=== PATIENT | female | born 1990 | race Caucasian/White ===

== ENCOUNTER 2019-09-24 12:11 | Emergency (ER) | payer BC ==
[~2019-09-24] VITALS: Ht 154.9 cm; Wt 54.4 kg
[2019-09-24 12:20] VITALS: BP_SYST 133
[2019-09-24] MEDS ORDERED: IPRATROPIUM/ALBUTEROL SULFATE 3 ML AMPUL.NEB (DUONEB) INH ONE (12:30)
[2019-09-24 14:22] VITALS: BP_SYST 133
== END 2019-09-24 14:16 | disposition home or self-care (01) ==
LOC: SED 12:11
DX: J45.909 Unspecified asthma, uncomplicated (principal); F17.210 Nicotine dependence, cigarettes, uncomplicated; Z71.6 Tobacco abuse counseling
CPT/HCPCS: 71045; 86710; 94640; 99284; J7620; 36415